=== PATIENT | male | born 1965 | race Caucasian/White ===

== ENCOUNTER → 2018-10-28 10:10 | Outpatient (CLI) | payer OTHER, SELFPAY ==
--- NOTE | 2018-10-28 10:15 | NM_ITS ---
CARDIOLITE SPECT MYOCARDIAL PERFUSION LEXISCAN, REST AND STRESS: History: Hypertension, history of tobacco use, family history, shortness of breath and fatigue Procedure: Patient received a 0.4 mg of intravenous Lexiscan, resting heart rate was 75 bpm resting blood pressure 167/93, with Lexiscan maximum heart rate achieved was 89 bpm which is less than 85% of the maximum predicted heart rate and a blood pressure was 164 101. With Lexiscan patient complained of shortness of breath and stomach discomfort. Electrocardiogram: Resting electrocardiogram showed sinus rhythm nonspecific ST-T changes were noted axis, with Lexiscan there is less than 1.[address] segment depression noted from the baseline EKG. The EKG portion of the Lexiscan Myoview is nondiagnostic. Cardiac stress and resting SPECT images: Cardiac stress and resting SPECT images were obtained using technetium 99 Myoview 32.1 mCi stress and 10.4 mCi at rest. Gated SPECT further analysis of segmental wall motion and calculation of the ejection fraction also done. Cardiac stress and resting SPECT images show mild fixed defect in the inferior wall with normal contractility in the gated SPECT is likely secondary to soft tissue attenuation, no reversible ischemia seen, computer derived ejection fraction is 42% with left ventricular global hypokinesis, left ventricle is dilated both stress and rest. Right ventricle is not well visualized Conclusion: 1. The EKG portion of the Lexiscan Myoview is nondiagnostic. 2. No obvious scintigraphic evidence of reversible ischemia seen, computer derived ejection fraction is 42% left ventricle is globally hypokinetic, left ventricle is dilated both stress and rest. 3. Abnormal Lexiscan Myoview study due to low ejection fraction.
--- NOTE | 2018-10-28 14:01 | HMH.ITSHM ---
Current Home Medications as stated by this patient Durga Handy or airport representative. []allpurnol losartan
== END ==
PROVIDERS: PCP Family Medicine; Visit Provider Family Medicine
DX: R06.02 Shortness of breath (principal); R53.83 Other fatigue; Z82.49 Family history of ischemic heart disease and other diseases of the circulatory system; Z87.891 Personal history of nicotine dependence; R40.0 Somnolence
CPT/HCPCS: 78452; 93017; 94060; 94640; 94726; 94729; 95806; A9502; J2785

== ENCOUNTER → 2019-01-19 11:50 | Outpatient (CLI) | payer OTHER, SELFPAY | PROVIDERS: Visit Provider Nurse Practitioner Family | DX: G47.33 Obstructive sleep apnea (adult) (pediatric) (principal); I10 Essential (primary) hypertension; I50.9 Heart failure, unspecified | CPT/HCPCS: 94762 ==

== ENCOUNTER → 2022-12-08 23:17 | Outpatient (CLI) | payer OTHER, SELFPAY ==
[2022-12-08 19:21] LABS: Basophils # 0.1 K/mm3 (0-0.2); Basophils % 0.6 % (0.1-2.0); Eosinophils # 0.2 K/mm3 (0.0-0.4); Eosinophils % 2.2 % (0.1-12.0); Hematocrit 44.9 % (42.0-52.0); Hemoglobin 14.9 g/dL (14.1-18.0); Lymphocytes # 2.5 K/mm3 (0.7-4.5); Lymphocytes % 25.6 % (10-50); Mean Corpuscular HGB Conc 33.2 g/dL (31.8-35.4); Mean Corpuscular Hemoglobin 28.3 pg (27.0-31.2); Mean Corpuscular Volume 85.2 fl (80-94); Mean Platelet Volume 9.5 fl (7.4-10.4); Monocytes # 0.6 K/mm3 (0.1-1.0); Monocytes % 5.6 % (1.7-9.3); Neutrophils # 6.5 K/mm3 (1.8-7.8); Platelet Count 247 K/mm3 (142-424); Red Blood Count 5.27 M/mm3 (4.60-6.20); Red Cell Distribution Width 13.8 % (11.5-17.5); White Blood Count 9.8 K/mm3 (4.8-10.8)
[2022-12-08 19:22] LABS: Creatinine,Urine Random 82 mg/dL (Not Estab.)
[2022-12-08 19:58] LABS: Alanine Aminotransferase 21 U/L (12-78); Albumin Level 4.1 g/dl (3.5-5.0); Albumin/Globulin Ratio 1.5 (1.1-1.8); Alkaline Phosphatase 123 U/L (38-126); Anion Gap 19.2 mEq/L (5-15); Aspartate Amino Transferase 34 U/L (17-59); Bilirubin,Total 0.5 mg/dl (0.2-1.3); Blood Urea Nitrogen 14 mg/dl (9-20); Calcium 8.7 mg/dl (8.4-10.2); Carbon Dioxide 21 mmol/L (22.0-30.0); Chloride 99 mmol/L (98-107); Chol/HDL Ratio 5.4 (1-3.5); Cholesterol 233 mg/dl (140-200); Estimated Glomerular Filt Rate 139 ml/min (>60); GFR (African American) 168 ML/MIN (>60); Globulin 2.8 g/dL (1.3-3.2); Glucose 274 mg/dl (74-100); HDL Cholesterol 43 mg/dl (40-60); Potassium 4.2 mmoL/L (3.5-5.1); Sodium 135 mmol/L (136-145); Total Protein,Serum 6.9 g/dl (6.3-8.2); Uric Acid 6.6 mg/dl (3.5-8.5)
[2022-12-08 20:01] LABS: 25-OH Vitamin D, Total < 12.8 ng/mL (30-100)
[2022-12-08 20:06] LABS: Triglycerides 412 mg/dl (30-150)
[2022-12-08 20:39] LABS: Direct LDL Cholesterol 135.06 mg/dL (100-129)
[2022-12-08 20:59] LABS: Prostate Specific Ag Screen 2.2 ng/ml (0.0-4.0); Thyroid Stimulating Hormone 2.01 uIU/mL (0.465-4.68)
[2022-12-08 21:18] LABS: Vitamin B12 492 pg/mL (239-931)
== END ==
PROVIDERS: PCP Nurse Practitioner; Visit Provider Nurse Practitioner
DX: E11.9 Type 2 diabetes mellitus without complications (principal); E55.9 Vitamin D deficiency, unspecified; E79.0 Hyperuricemia without signs of inflammatory arthritis and tophaceous disease; I10 Essential (primary) hypertension; G47.33 Obstructive sleep apnea (adult) (pediatric); Z12.5 Encounter for screening for malignant neoplasm of prostate
CPT/HCPCS: 80053; 80061; 82043; 82306; 82570; 82607; 83036; 84443; 84550; 85025; G0103

== ENCOUNTER → 2023-02-11 15:58 | Outpatient (CLI) | payer OTHER, SELFPAY ==
[2023-02-11 19:02] LABS: Chloride 99 mmol/L (98-107)
[2023-02-11 19:03] LABS: Potassium 3.9 mmoL/L (3.5-5.1); Sodium 136 mmol/L (136-145)
[2023-02-11 19:05] LABS: Alanine Aminotransferase 25 U/L (12-78); Alkaline Phosphatase 122 U/L (38-126); Anion Gap 16.9 mEq/L (5-15); Aspartate Amino Transferase 37 U/L (17-59); Bilirubin,Total 0.3 mg/dl (0.2-1.3); Blood Urea Nitrogen 16 mg/dl (9-20); Carbon Dioxide 24 mmol/L (22.0-30.0); Estimated Glomerular Filt Rate 139 ml/min (>60); GFR (African American) 168 ML/MIN (>60)
[2023-02-11 19:06] LABS: Albumin Level 4.3 g/dl (3.5-5.0); Albumin/Globulin Ratio 1.5 (1.1-1.8); Calcium 9.3 mg/dl (8.4-10.2); Chol/HDL Ratio 2.9 (1-3.5); Cholesterol 151 mg/dl (140-200); Globulin 2.9 g/dL (1.3-3.2); Glucose 297 mg/dl (74-100); HDL Cholesterol 52 mg/dl (40-60); Total Protein,Serum 7.2 g/dl (6.3-8.2)
[2023-02-11 19:16] LABS: Hemoglobin A1C 12.5 % (4.0-6.0); Triglycerides 452 mg/dl (30-150)
[2023-02-11 19:17] LABS: Direct LDL Cholesterol 55.51 mg/dL (100-129)
[2023-02-11 20:25] LABS: 25-OH Vitamin D, Total 34.7 ng/mL (30-100)
== END ==
PROVIDERS: PCP Nurse Practitioner; Visit Provider Nurse Practitioner
DX: I42.8 Other cardiomyopathies (principal); E11.9 Type 2 diabetes mellitus without complications; E78.5 Hyperlipidemia, unspecified; G47.33 Obstructive sleep apnea (adult) (pediatric); Z79.84 Long term (current) use of oral hypoglycemic drugs; E66.01 Morbid (severe) obesity due to excess calories; Z68.42 Body mass index [BMI] 45.0-49.9, adult
CPT/HCPCS: 80053; 80061; 82306; 83036

== ENCOUNTER → 2023-05-04 16:00 | Outpatient (CLI) | payer OTHER, SELFPAY ==
[2023-05-04 19:15] LABS: Alanine Aminotransferase 18 U/L (12-78); Albumin Level 4.5 g/dl (3.5-5.0); Albumin/Globulin Ratio 1.6 (1.1-1.8); Alkaline Phosphatase 91 U/L (38-126); Anion Gap 14.7 mEq/L (5-15); Aspartate Amino Transferase 31 U/L (17-59); Bilirubin,Total 0.3 mg/dl (0.2-1.3); Blood Urea Nitrogen 20 mg/dl (9-20); Calcium 9.2 mg/dl (8.4-10.2); Carbon Dioxide 24 mmol/L (22.0-30.0); Chloride 103 mmol/L (98-107); Estimated Glomerular Filt Rate 116 ml/min (>60); GFR (African American) 141 ML/MIN (>60); Globulin 2.8 g/dL (1.3-3.2); Glucose 163 mg/dl (74-100); Potassium 3.7 mmoL/L (3.5-5.1); Sodium 138 mmol/L (136-145); Total Protein,Serum 7.3 g/dl (6.3-8.2)
== END ==
LOC: LAB.DROPOF 05-12 13:46
PROVIDERS: PCP Nurse Practitioner; Visit Provider Nurse Practitioner
DX: E11.9 Type 2 diabetes mellitus without complications (principal); E78.5 Hyperlipidemia, unspecified; I10 Essential (primary) hypertension; Z79.84 Long term (current) use of oral hypoglycemic drugs
CPT/HCPCS: 80053; 83036

== ENCOUNTER → 2023-07-27 07:08 | Outpatient (CLI) | payer OTHER, SELFPAY ==
[2023-07-27 18:42] LABS: Chloride 106 mmol/L (98-107)
[2023-07-27 18:43] LABS: Potassium 3.8 mmoL/L (3.5-5.1); Sodium 137 mmol/L (136-145)
[2023-07-27 18:45] LABS: Alanine Aminotransferase 19 U/L (12-78); Alkaline Phosphatase 88 U/L (38-126); Aspartate Amino Transferase 37 U/L (17-59); Bilirubin,Total 0.5 mg/dl (0.2-1.3); Blood Urea Nitrogen 33 mg/dl (9-20); Estimated Glomerular Filt Rate 77 ml/min (>60); GFR (African American) 93 ML/MIN (>60)
[2023-07-27 18:46] LABS: Albumin Level 4.6 g/dl (3.5-5.0); Albumin/Globulin Ratio 1.5 (1.1-1.8); Anion Gap 13.8 mEq/L (5-15); Calcium 9.1 mg/dl (8.4-10.2); Carbon Dioxide 21 mmol/L (22.0-30.0); Glucose 133 mg/dl (74-100); Total Protein,Serum 7.6 g/dl (6.3-8.2)
[2023-07-27 21:50] LABS: Hemoglobin A1C 7.6 % (4.0-6.0)
== END ==
LOC: LAB.DROPOF 07-28 07:09
PROVIDERS: PCP Nurse Practitioner; Visit Provider Nurse Practitioner
DX: E11.9 Type 2 diabetes mellitus without complications (principal); I10 Essential (primary) hypertension; Z79.84 Long term (current) use of oral hypoglycemic drugs; Z87.891 Personal history of nicotine dependence
CPT/HCPCS: 80053; 83036

== ENCOUNTER 2023-10-29 19:08 | Outpatient (CLI) | payer OTHER, SELFPAY ==
[2023-10-29 18:37] LABS: Chloride 106 mmol/L (98-107)
[2023-10-29 18:38] LABS: Potassium 4.2 mmoL/L (3.5-5.1); Sodium 139 mmol/L (136-145)
[2023-10-29 18:40] LABS: Alanine Aminotransferase 19 U/L (12-78); Anion Gap 13.2 mEq/L (5-15); Aspartate Amino Transferase 32 U/L (17-59); Blood Urea Nitrogen 19 mg/dl (9-20); Carbon Dioxide 24 mmol/L (22.0-30.0); Estimated Glomerular Filt Rate 100 ml/min (>60); GFR (African American) 121 ML/MIN (>60)
[2023-10-29 18:41] LABS: Albumin Level 4.1 g/dl (3.5-5.0); Albumin/Globulin Ratio 1.6 (1.1-1.8); Alkaline Phosphatase 88 U/L (38-126); Bilirubin,Total 0.3 mg/dl (0.2-1.3); Calcium 9.3 mg/dl (8.4-10.2); Chol/HDL Ratio 5.6 (1-3.5); Cholesterol 241 mg/dl (140-200); Globulin 2.6 g/dL (1.3-3.2); Glucose 113 mg/dl (74-100); HDL Cholesterol 43 mg/dl (40-60); Total Protein,Serum 6.7 g/dl (6.3-8.2); Triglycerides 355 mg/dl (30-150); VLDL Cholesterol 71 mg/dL (0-40)
[2023-10-29 18:52] LABS: Direct LDL Cholesterol 128.12 mg/dL (100-129)
[2023-10-29 19:08] LABS: Hemoglobin A1C 7.7 % (4.0-6.0)
[2023-10-29 19:38] LABS: Microalbumin/Creatinine Ratio 12.3
[2023-10-29 19:44] LABS: Creatinine,Urine Random 97 mg/dL (Not Estab.)
== END 2023-10-29 23:59 ==
LOC: LAB.DROPOF 19:08
PROVIDERS: PCP Nurse Practitioner; Visit Provider Nurse Practitioner
DX: E11.9 Type 2 diabetes mellitus without complications (principal); I10 Essential (primary) hypertension; E78.5 Hyperlipidemia, unspecified; Z79.84 Long term (current) use of oral hypoglycemic drugs; Z87.891 Personal history of nicotine dependence
CPT/HCPCS: 80053; 80061; 82043; 82570; 83036

== ENCOUNTER 2025-01-17 11:30 | Outpatient (CLI) | payer OTHER, SELFPAY ==
[2025-01-17 18:49] LABS: Basophils # 0.1 K/mm3 (0-0.2); Basophils % 0.4 % (0.1-2.0); Eosinophils # 0.3 Kmm3 (0.0-0.4); Eosinophils % 2.4 % (0.1-12.0); Hematocrit 40.1 % (42.0-52.0); Hemoglobin 12.6 g/dL (14.1-18.0); Immature Granulocytes % 0.8 %; Lymphocytes # 2.8 K/mm3 (0.7-4.5); Lymphocytes % 23.3 % (10-50); Mean Corpuscular HGB Conc 31.4 g/dL (31.8-35.4); Mean Corpuscular Volume 85.9 fl (80-94); Mean Platelet Volume 10.8 fl (7.4-10.4); Monocytes # 0.8 K/mm3 (0.1-1.0); Monocytes % 6.4 % (1.7-9.3); Neutrophils # 7.9 K/mm3 (1.8-7.8); Neutrophils % 66.7 % (37.0-80.0); Nucleated Red Blood Cells # 0 10^3/uL; Nucleated Red Blood Cells % 0 %; Platelet Count 250 K/mm3 (142-424); Red Blood Count 4.67 M/mm3 (4.60-6.20); Red Cell Distribution Width 13.2 % (11.5-17.5); Red Cell Distribution Width-SD 41.1 fL; White Blood Count 11.8 K/mm3 (4.8-10.8)
[2025-01-17 18:52] LABS: Creatinine,Urine Random 85 mg/dL (Not Estab.)
[2025-01-17 18:58] LABS: Microalbumin/Creatinine Ratio 24.8
[2025-01-17 19:33] LABS: Alanine Aminotransferase 18 U/L (12-78); Albumin Level 4.1 g/dl (3.5-5.0); Albumin/Globulin Ratio 1.5 (1.1-1.8); Alkaline Phosphatase 97 U/L (38-126); Anion Gap 9.3 mEq/L (5-15); Aspartate Amino Transferase 34 U/L (17-59); Bilirubin,Total 0.3 mg/dl (0.2-1.3); Blood Urea Nitrogen 19 mg/dl (9-20); Calcium 9.5 mg/dl (8.4-10.2); Carbon Dioxide 25 mmol/L (22.0-30.0); Chloride 105 mmol/L (98-107); Cholesterol 253 mg/dl (140-200); Estimated Glomerular Filt Rate 86 ml/min (>60); GFR (African American) 105 ML/MIN (>60); Globulin 2.8 g/dL (1.3-3.2); Glucose 214 mg/dl (74-100); HDL Cholesterol 42 mg/dl (40-60); Potassium 4.3 mmoL/L (3.5-5.1); Sodium 135 mmol/L (136-145); Total Protein,Serum 6.9 g/dl (6.3-8.2); Uric Acid 7.9 mg/dl (3.5-8.5)
[2025-01-17 19:38] LABS: Triglycerides 459 mg/dl (30-150)
[2025-01-17 19:46] LABS: 25-OH Vitamin D, Total 26.9 ng/mL (30-100)
[2025-01-17 19:48] LABS: Hemoglobin A1C 9.1 % (4.0-6.0)
[2025-01-17 19:52] LABS: Direct LDL Cholesterol 135.47 mg/dL (100-129)
[2025-01-17 20:05] LABS: Prostate Specific Ag Screen 4.2 ng/ml (0.0-4.0)
[2025-01-17 20:07] LABS: HIV Combo NEGATIVE (Negative)
[2025-01-17 20:24] LABS: Vitamin B12 431 pg/mL (239-931)
[2025-01-17 21:26] LABS: Hepatitis C Ab Qual. W/ RFX NEGATIVE (Negative)
--- OUTSIDE RECORDS SUMMARY | 2025-01-18 11:57 | XMS_ITS | Clinical Summary ---
Author Organization [facility] Address [facility] [place] [facility] [place] [address] [address] Care Team Providers Care Medication Reconciliation Technician Name Role Phone Unavailable Primary Care Provider Unavailabl e Social History Tobacco Use Types Packs/Day Years Used Date Smoking Tobacco: Never Assessed Sex and Gender Information Value Date Recorded Sex Assigned at Not on file Legal Sex Male 7:15 PM EDT Gender Identity Not on file Sexual Orientation Not on file Plan of Treatment Health Maintenance Due Date Last Done Comments DTap,Tdap,and Td (1 - Tdap) 1976 Colonoscopy 2010 PSA YEARLY 12/04/2015 Pneumococcal 50+ (1 of 1 - PCV) 12/04/2015 Shingrix (#1) 12/04/2015 Influenza Vaccine (Season Ended) 2025 RSV Vaccine (60+ or ) (1 - 1-dose 75+ series) 2040 HPV Aged Out No longer eligi ble based on patient's age to complete this topic Meningococcal conjugate yasmany nt 4 (MCV4) Aged Out No longer eligible b ased on patient's age to complete this topic RSV Immunization (<20 months) Aged Out No longer eligible based on patient's age to complete this topic
--- OUTSIDE RECORDS SUMMARY | 2025-01-18 11:57 | XMS_ITS | Clinical Summary ---
Author Organization [facility] Address [address] [place] [address] Phone Care Team Providers Care Annual Campaign Manager Name Role Phone Unavailable Primary Care Provider Unavailabl e Allergies No known active allergies Medications allopurinoL (ZYLOPRIM) 300 mg Oral TabletIndications :Encounter for medical examination to establish care,History of gout TAKE 1 TABLET BY MOUTH TWICE A DAY 60 Tab 10/31/2020 Active losartan (COZAAR) 100 mg Oral TabletIndications :Encounter for medical examination to establish care,Essential hypertension TAKE 1 TABLET BY MOUTH EVERY DAY 30 Tab 10/31/2020 Active Active Problems Problem Noted Date Diagnosed Date URBANO on CPAP 10/07/2020 Overview (10/07/2020): Supplies supplied by [facility] History of gout 10/07/2020 Essential hypertension 10/07/2020 Overview (10/07/2020): Has been off medications so will restart and follow up in 4 weeks. Vitamin D deficiency 10/07/2020 Tinnitus of right ear 10/07/2020 Obesity, Class III, BMI 40-49.9 (morbid obesity) 10/07/2020 Surgical History Surgery Date Site/Laterality Comments FOOT SURGERY 08/10/2007 - 08/09/2008 Right ankle fusion Medical History Medical History Date Comments Hypertension Gout Sleep apnea using cpap Family History Medical History Relation Name Comments No Known Problems Brother High Blood Pressure Father Prostate Cancer Father No Known Problems Maternal Grandfather No Known Problems Maternal Grandmother Ovarian Cancer Mother No Known Problems Other Heart Failure Paternal Grandfather Cancer Paternal Grandmother Heart Failure Paternal Uncle 1 Colon Cancer Paternal Uncle 2 No Known Problems Sister 1 Brain Cancer Sister 2 Allergies Neg Hx Bleeding Prob Neg Hx Hearing Loss Neg Hx Heart Disease Neg Hx Migraines Neg Hx Thyroid Disease Neg Hx Relation Name Status Comments Brother Alive Father Alive Maternal Grandfather Maternal Grandmother Mother Other Paternal Grandfather Paternal Grandmother Paternal Uncle 1 Paternal Uncle 2 Sister 1 Alive Sister 2 Social History Tobacco Use Types Packs/Day Years Used Date Smoking Tobacco: Former Cigarettes 1 35 1 09/10/1983 - 07/10/2019 Smokeless Tobacco: Never Alcohol Use Standard Drinks/Week Comments Yes 0 (1 standard drink = 0.6 oz pur e alcohol) only on Saturdays PHQ-2 Answer Date Recorded PHQ-2 Total Score 0 10/05/2020 Sex and Gender Information Value Date Recorded Sex Assigned at Not on file Legal Sex Male 11:31 AM EST Gender Identity Not on file Sexual Orientation Not on file Obstetrics History Last Filed Vital Signs Vital Sign Reading Time Taken Comments Blood Pressure 172/88 10/05/2020 2:17 PM EST Pulse 65 10/05/2020 2:17 PM EST Temperature 36.8 C (98.2 F) 10/11/2020 1:20 PM EST Respiratory Rate 18 10/05/2020 2:17 PM EST Oxygen Saturation 97% 10/05/2020 2:17 PM EST Inhaled Oxygen Concentration - - Weight 152.4 kg (336 lb) 10/11/2020 1:20 PM EST Height 182.9 cm (6') 10/11/2020 1:20 PM EST Body Mass Index 45.57 10/11/2020 1:20 PM EST Plan of Treatment Health Maintenance Due Date Last Done Comments Annual Wellness Exam 1968 DTaP/TDaP/Td (1 - Tdap) 1984 Hepatitis B Vaccine (1 of 3 - 19+ 3-dose series) 1984 Cologuard 2010 Colon Cancer Screening 2010 Colonoscopy 2010 FIT 2010 Sigmoidoscopy 2010 Virtual Colonography 2010 Low Dose Lung Cancer Screening 12/04/2015 Pneumococcal Vaccine 50+ (1 of 1 - PCV) 12/04/2015 Zoster (1 of 2) 12/04/2015 COVID-19 Vaccine (2023-2 5 season) 2024 Influenza Vaccine (Season Ended) 2025 Meningococcal B Vaccine Aged Out No l onger eligible based on patient's age to complete this topic Goals Goal Patient Goal Type Associated Problems Recent Progress Patient-Stated? Author Blood Pressure < 140/90 Blood Pressure 172/88(2020 2:17 PM EST) No Michelle Zhong MD Maintain a healthy diet, exercise regularly and maintain an ideal body weight General No Fawn Burrows CCMA Stay Tobacco Free Lifestyle No Michelle Zhong MD Insurance CHOICE PLUS CHOICE PLUS [facility] CHOICE PLUS
--- OUTSIDE RECORDS SUMMARY | 2025-01-18 11:57 | XMS_ITS | Referral Summary ---
Author Organization [facility] Address [address] [place] [address]. [place] [address] Care Team Providers Care Chronic Manager Name Role Phone Unavailable Primary Care Provider Unavailabl e Social History Tobacco Use Types Packs/Day Years Used Date Smoking Tobacco: Never Assessed Sex and Gender Information Value Date Recorded Sex Assigned at Not on file Legal Sex Male 7:15 PM EDT Gender Identity Not on file Sexual Orientation Not on file Plan of Treatment Not on file
[2025-01-19 05:17] LABS: Hepatitis B Surface Antigen Negative (Negative)
== END 2025-01-17 23:59 | disposition home or self-care (01) ==
LOC: LAB.DROPOF 01-18 11:55
PROVIDERS: PCP Nurse Practitioner; Visit Provider Nurse Practitioner
DX: E55.9 Vitamin D deficiency, unspecified (principal); E11.9 Type 2 diabetes mellitus without complications; E78.5 Hyperlipidemia, unspecified; E79.0 Hyperuricemia without signs of inflammatory arthritis and tophaceous disease; I10 Essential (primary) hypertension; Z12.5 Encounter for screening for malignant neoplasm of prostate; Z13.0 Encounter for screening for diseases of the blood and blood-forming organs and certain disorders involving the immune mechanism
CPT/HCPCS: 80053; 80061; 82043; 82306; 82570; 82607; 83036; 84443; 84550; 85025; 86803; 87340; 87389; G0103